=== PATIENT | female | born 1980 | race African-American/Black ===

== ENCOUNTER 2016-10-12 08:00 | Emergency (ER) | payer MEDICAID, OTHER ==
[~2016-10-12] VITALS: Ht 160 cm; Wt 55.0 kg
[~2016-10-12 08:00] MED LIST: FERR-43 PO; HYDR-3992 PO
[2016-10-12] MEDS ORDERED: ONDANSETRON 4MG ODT PO STA (09:31)
[2016-10-12] MEDS ORDERED: MAGNESIUM/ALUMINUM HYDROXIDE/SIMETHICONE 30ML UDC PO STA (09:31)
[2016-10-12] MEDS ORDERED: FAMOTIDINE 20MG TABLET PO ONE (09:45)
[2016-10-12 09:53] LABS: BASOPHILS % 0.6 % (0.0-2.0); EOSINOPHILS % 0.2 % (0.0-5.0); HEMATOCRIT. 36.6 % (36.0-48.0); HEMOGLOBIN. 12.2 g/dL (12.0-16.0); LYMPHOCYTES % 19.1 % (20.0-50.0); MEAN CORPUSCULAR HEMOGLOBIN 28.8 pg (28.0-32.0); MEAN CORPUSCULAR VOLUME 86.5 fL (81.0-99.0); MEAN PLATELET VOLUME 7.8 fl (7.4-10.4); MONOCYTES % 5.9 % (2.0-8.0); NEUTROPHILS % 74.2 % (40.0-76.0); PLATELET 265 x1000/uL (130-400); RED BLOOD CELL COUNT 4.23 mill/uL (4.2-5.4)
[2016-10-12 09:59] LABS: CHLORIDE 105 mEq/L (98-107)
[2016-10-12 10:02] LABS: PROTHROMBIN TIME 10.7 sec
[2016-10-12 10:08] LABS: CARBON DIOXIDE 23 mEq/L (21-32)
[2016-10-12] MEDS ORDERED: SODIUM CHLORIDE 0.9% 1,000 ML IV ONE (10:15)
[2016-10-12] MEDS ORDERED: MORPHINE SULFATE 4 MG/ML CPJ (NOT FOR IM USE) IV ONE (10:15)
[2016-10-12] MEDS ORDERED: ONDANSETRON 4MG ODT PO ONE (10:15)
[2016-10-12 10:19] LABS: CLARITY URINE CLOUDY (CLEAR); COLOR URINE YELLOW (YELLOW); GLUCOSE URINE NEGATIVE (NEGATIVE); KETONES URINE NEGATIVE (NEGATIVE); LEUKOCYTE ESTERASE URINE NEGATIVE (NEGATIVE); NITRITE URINE POSITIVE (NEGATIVE); OCCULT BLOOD URINE TRACE (NEGATIVE); PROTEIN URINE TRACE (NEGATIVE); SPECIFIC GRAVITY URINE 1.033 (1.005-1.030)
[2016-10-12] MEDS ORDERED: ONDANSETRON HCL 4MG/2ML VIAL IV ONE (11:00)
[2016-10-12] MEDS ORDERED: FAMOTIDINE 20MG/2ML VIAL IV ONE (11:00)
[2016-10-12] MEDS ORDERED: MORPHINE SULFATE 4 MG/ML CPJ (NOT FOR IM USE) IV SCH (13:15)
[2016-10-12 14:48] VITALS: BP 107/71
== END 2016-10-12 14:50 | disposition home or self-care (01) ==
LOC: ER 08:13
DX: N39.0 Urinary tract infection, site not specified (principal); E05.90 Thyrotoxicosis, unspecified without thyrotoxic crisis or storm
CPT/HCPCS: 36415; 76830; 76856; 80053; 81001; 83690; 85025; 85610; 96361; 96374; 96375; 96376; 99285; J2270; J2405; J3490; Q0162; J7030

== ENCOUNTER 2017-03-19 11:09 | Emergency (ER) | payer OTHER ==
[~2017-03-19] VITALS: Ht 170.2 cm; Wt 55.0 kg
[2017-03-19 11:34] VITALS: BP 85/50
== END 2017-03-19 14:41 | disposition left against medical advice (07) ==
LOC: ER 12:04
DX: R10.9 Unspecified abdominal pain (principal); Z53.21 Procedure and treatment not carried out due to patient leaving prior to being seen by health care provider

== ENCOUNTER 2017-06-12 11:24 | Emergency (ER) | payer MEDICAID, OTHER ==
[~2017-06-12] VITALS: Ht 170.2 cm; Wt 50.0 kg
[2017-06-12] MEDS ORDERED: DRAMAMINE (11:35)
[2017-06-12 12:15] LABS: BASOPHILS % 0.3 % (0.0-2.0); EOSINOPHILS % 0.1 % (0.0-5.0); HEMATOCRIT. 42.8 % (36.0-48.0); HEMOGLOBIN. 14.5 g/dL (12.0-16.0); LYMPHOCYTES % 7.9 % (20.0-50.0); MEAN CORPUSCULAR HEMOGLOBIN 28.3 pg (28.0-32.0); MEAN CORPUSCULAR VOLUME 83.5 fL (81.0-99.0); MEAN PLATELET VOLUME 7.6 fl (7.4-10.4); MONOCYTES % 7.4 % (2.0-8.0); NEUTROPHILS % 84.3 % (40.0-76.0); PLATELET 297 x1000/uL (130-400); RED BLOOD CELL COUNT 5.12 mill/uL (4.2-5.4); RED CELL DISTRIBUTION WIDTH 16.2 % (11.6-14.6)
[2017-06-12 12:18] LABS: INR 1.1
[2017-06-12 12:21] LABS: CHLORIDE 105 mEq/L (98-107)
[2017-06-12 13:39] LABS: CLARITY URINE CLEAR (CLEAR); COLOR URINE YELLOW (YELLOW); KETONES URINE NEGATIVE (NEGATIVE); LEUKOCYTE ESTERASE URINE NEGATIVE (NEGATIVE); NITRITE URINE NEGATIVE (NEGATIVE); OCCULT BLOOD URINE 1+ (NEGATIVE); PH URINE 6.5 (4.5-8.0); PROTEIN URINE 1+ (NEGATIVE); SPECIFIC GRAVITY URINE 1.009 (1.005-1.030); UROBILINOGEN URINE 0.2 E.U./dL (0.2-1.0)
[2017-06-12] MEDS ORDERED: SODIUM CHLORIDE 0.9% 1,000 ML IV ONE (14:02)
[2017-06-12] MEDS ORDERED: ONDANSETRON HCL 4MG/2ML VIAL IV ONE (14:15)
[2017-06-12] MEDS ORDERED: LORAZEPAM 1MG TABLET PO ONE (14:15)
[2017-06-12] MEDS ORDERED: MORPHINE SULFATE 4 MG/ML CPJ (NOT FOR IM USE) IV ONE (15:15)
[2017-06-12 15:50] LABS: *AMPHETAMINES SCREEN URINE NEGATIVE (NEGATIVE); *BARBITURATES SCREEN URINE NEGATIVE (NEGATIVE); *BENZODIAZEPINES SCREEN URINE NEGATIVE (NEGATIVE); *COCAINE SCREEN URINE NEGATIVE (NEGATIVE); METHADONE URINE SCREEN NEGATIVE (NEGATIVE); PHENCYCLIDINE URINE SCREEN NEGATIVE (NEGATIVE)
[2017-06-12 15:51] LABS: CANNABINOID URINE SCREEN PRESUMTIVE POSITIVE (NEGATIVE); OPIATES URINE SCREEN PRESUMTIVE POSITIVE (NEGATIVE)
[2017-06-12 17:12] VITALS: BP 124/75
[2017-06-12] MEDS ORDERED: POTASSIUM CHLORIDE 20MEQ TABLET SR PO ONE (18:15)
== END 2017-06-12 18:31 | disposition left against medical advice (07) ==
LOC: ER 11:24
DX: R10.30 Lower abdominal pain, unspecified (principal); N80.9 Endometriosis, unspecified; G89.29 Other chronic pain; R10.2 Pelvic and perineal pain; R11.2 Nausea with vomiting, unspecified; F41.0 Panic disorder [episodic paroxysmal anxiety]; E87.6 Hypokalemia; E05.90 Thyrotoxicosis, unspecified without thyrotoxic crisis or storm; F17.210 Nicotine dependence, cigarettes, uncomplicated; Z90.89 Acquired absence of other organs; F12.90 Cannabis use, unspecified, uncomplicated; Z88.6 Allergy status to analgesic agent; Z88.8 Allergy status to other drugs, medicaments and biological substances; Z98.890 Other specified postprocedural states
CPT/HCPCS: 36415; 76830; 76856; 80053; 80305; 81003; 81025; 83690; 83735; 85025; 85610; 96361; 96374; 96375; 99291; J2270; J2405; J7030; Z7610

== ENCOUNTER 2017-10-04 05:00 | Emergency (ER) | payer OTHER ==
[~2017-10-04] VITALS: Ht 170.2 cm; Wt 50.0 kg
[~2017-10-04 05:00] MED LIST changes: +CITA20TA19 PO; +CLON0.3T PO; -FERR-43 PO; +HYDR-2412 PO; -HYDR-3992 PO; +LORA2TAB2 PO
[2017-10-04] MEDS ORDERED: MORPHINE SULFATE 4 MG/ML CPJ (NOT FOR IM USE) IV STA (06:35)
[2017-10-04] MEDS ORDERED: ACETAMINOPHEN 325MG TABLET PO STA (06:35)
[2017-10-04] MEDS ORDERED: SODIUM CHLORIDE 0.9% 1,000 ML IV ONE (06:35)
[2017-10-04] MEDS ORDERED: DIPHENHYDRAMINE 50MG/ML VIAL IV ONE (06:45)
[2017-10-04] MEDS ORDERED: PROCHLORPERAZINE 10MG/2ML VIAL IV ONE (06:45)
[2017-10-04 07:08] LABS: BASOPHILS % 0.8 % (0.0-2.0); EOSINOPHILS % 0.4 % (0.0-5.0); HEMATOCRIT. 33.1 % (36.0-48.0); HEMOGLOBIN. 10.7 g/dL (12.0-16.0); LYMPHOCYTES % 8.8 % (20.0-50.0); MEAN CORPUSCULAR VOLUME 86.2 fL (81.0-99.0); MEAN PLATELET VOLUME 7.4 fl (7.4-10.4); MONOCYTES % 4.2 % (2.0-8.0); NEUTROPHILS % 85.8 % (40.0-76.0); PLATELET 285 x1000/uL (130-400); RED BLOOD CELL COUNT 3.84 mill/uL (4.2-5.4); RED CELL DISTRIBUTION WIDTH 15.5 % (11.6-14.6)
[2017-10-04 07:13] LABS: CHLORIDE 106 mEq/L (98-107)
[2017-10-04 07:15] LABS: INR 0.9; PROTHROMBIN TIME 9.8 sec (9.4-11.6)
[2017-10-04 09:16] LABS: CLARITY URINE TURBID (CLEAR); COLOR URINE YELLOW (YELLOW); KETONES URINE NEGATIVE (NEGATIVE); LEUKOCYTE ESTERASE URINE NEGATIVE (NEGATIVE); NITRITE URINE NEGATIVE (NEGATIVE); OCCULT BLOOD URINE NEGATIVE (NEGATIVE); PH URINE 8.5 (4.5-8.0); PROTEIN URINE TRACE (NEGATIVE); SPECIFIC GRAVITY URINE 1.024 (1.005-1.030); UROBILINOGEN URINE 0.2 E.U./dL (0.2-1.0)
[2017-10-04 11:17] VITALS: BP 115/75
== END 2017-10-04 11:20 | disposition home or self-care (01) ==
LOC: ER 05:00
DX: N39.0 Urinary tract infection, site not specified (principal); M54.5 Low back pain; G89.29 Other chronic pain; M25.522 Pain in left elbow; M25.521 Pain in right elbow; M25.562 Pain in left knee; M25.561 Pain in right knee; D64.9 Anemia, unspecified; R03.0 Elevated blood-pressure reading, without diagnosis of hypertension
CPT/HCPCS: 36415; 80053; 81003; 81025; 85025; 85610; 93005; 96361; 96374; 96375; 99285; J0780; J1200; J2270; J7030; Z7610

== ENCOUNTER 2017-10-13 14:00 | Emergency (ER) | payer OTHER ==
[~2017-10-13] VITALS: Ht 170.2 cm; Wt 50.0 kg
[2017-10-13 16:11] VITALS: BP 131/78
[2017-10-13 16:29] LABS: CLARITY URINE CLOUDY (CLEAR); COLOR URINE YELLOW (YELLOW); KETONES URINE TRACE (NEGATIVE); LEUKOCYTE ESTERASE URINE 1+ (NEGATIVE); NITRITE URINE NEGATIVE (NEGATIVE); OCCULT BLOOD URINE NEGATIVE (NEGATIVE); PH URINE 6.5 (4.5-8.0); PROTEIN URINE NEGATIVE (NEGATIVE); SPECIFIC GRAVITY URINE 1.025 (1.005-1.030)
== END 2017-10-13 16:59 | disposition left against medical advice (07) ==
LOC: ER 14:04
DX: R10.30 Lower abdominal pain, unspecified (principal); R11.2 Nausea with vomiting, unspecified; R42 Dizziness and giddiness
CPT/HCPCS: 81003; 81025; 99283

== ENCOUNTER 2019-02-27 13:54 | Emergency (ER) | payer MEDICAID, OTHER ==
[~2019-02-27] VITALS: Ht 170.2 cm; Wt 75.0 kg
[~2019-02-27 13:54] MED LIST changes: -HYDR-2412 PO; +HYDR-459 PO
[2019-02-27] MEDS: ONDANSETRON HCL 4MG/2ML INJ IV STA (16:57)
[2019-02-27] MEDS: MORPHINE SULFATE 4 MG/ML CPJ (NOT FOR IM USE) IV STA (16:57)
[2019-02-27] MEDS: SODIUM CHLORIDE 0.9% 1,000 ML IV ONE (16:57)
[2019-02-27 17:05] LABS: BASOPHILS % 0.8 % (0.0-2.0); EOSINOPHILS % 1.7 % (0.0-5.0); HEMATOCRIT. 36.5 % (36.0-48.0); HEMOGLOBIN. 12.2 g/dL (12.0-16.0); LYMPHOCYTES % 35.9 % (20.0-50.0); MEAN CORPUSCULAR HEMOGLOBIN 29.2 pg (28.0-32.0); MEAN CORPUSCULAR VOLUME 87.4 fL (81.0-99.0); MEAN PLATELET VOLUME 7.1 fl (7.4-10.4); NEUTROPHILS % 55.6 % (40.0-76.0); PLATELET 332 x1000/uL (130-400); RED BLOOD CELL COUNT 4.18 mill/uL (4.2-5.4); RED CELL DISTRIBUTION WIDTH 14.8 % (11.6-14.6)
[2019-02-27 17:09] LABS: CHLORIDE 108 mEq/L (98-107)
[2019-02-27 18:44] VITALS: BP 128/70
== END 2019-02-27 18:45 | disposition home or self-care (01) ==
LOC: ER 13:54
DX: R10.30 Lower abdominal pain, unspecified (principal); M79.7 Fibromyalgia; F12.10 Cannabis abuse, uncomplicated; F17.210 Nicotine dependence, cigarettes, uncomplicated; Z90.49 Acquired absence of other specified parts of digestive tract; Z88.8 Allergy status to other drugs, medicaments and biological substances
CPT/HCPCS: 36415; 76830; 76856; 80053; 81025; 83690; 85025; 85610; 96361; 96374; 96375; 99284; J2270; J2405; J7030